=== PATIENT | male | born 1975 | race Caucasian/White ===

== ENCOUNTER 2017-06-02 12:06 | Inpatient (IN) | payer OTHER ==
[~2017-06-02] VITALS: Ht 185.4 cm; Wt 95.5 kg
[2017-06-02] MEDS ORDERED: CARAFATE1 G PO (12:39)
[2017-06-02] MEDS ORDERED: ZANTAC150 MG PO (12:39)
--- NOTE | 2017-06-02 12:40 | NUR ---
PT ARRIVED TO FLOOR AT THIS TIME. ORIENTED TO ROOM AND UNIT, BED IN LOW POSITION AND CALL LIGHT WITHIN REACH. WILL CONTINUE TO MONITOR.
[2017-06-02] MEDS ORDERED: OMEPRAZOLE20 M1 PO (12:41)
[2017-06-02] MEDS ORDERED: BACTRIM 400-801 TAB PO (12:41)
[2017-06-02] MEDS ORDERED: RIFADIN300 MG PO (12:42)
[2017-06-02 14:05] LABS: BASOPHILS 0.4 % (0-2); EOSINOPHILS 2.5 % (0-7); HEMATOCRIT 41.7 % (42.0-54.0); IMMATURE GRANULOCYTES 0.2 % (0-5); LYMPHOCYTES 13.6 % (15-50); MCH 31.4 pg (26.0-34.0); MCHC 33.6 g/dL (31.0-37.0); MCV 93.5 fL (80.0-100.0); MEAN PLATELET VOLUME 10.1 fL (7.4-10.4); MONOCYTES 4.1 % (2-11); NEUTROPHILS 79.2 % (40-80); PLATELET COUNT 350 10x3/uL (130-400); RBC 4.46 10x6/uL (4.20-6.10); RDW 13.3 % (11.5-14.5); WBC 8.5 10x3/uL (4.8-10.8)
[2017-06-02 14:30] LABS: ALBUMIN 3.1 g/dL (3.4-5.0); ANION GAP 13.8 mmol/L (8-16); BILIRUBIN - TOTAL 0.29 mg/dL (0.2-1.3); CALCIUM 8.9 mg/dL (8.5-10.1); CARBON DIOXIDE 25.6 mmol/L (21.0-32.0); CREATININE - SERUM 1.3 mg/dL (0.6-1.3); POTASSIUM - SERUM 4.4 mmol/L (3.5-5.1); PROTEIN - SERUM 6.6 g/dL (6.4-8.2)
--- NOTE | 2017-06-02 14:30 | NUR ---
20G IV STARTED TO THE RIGHT FOREARM. IV FLUIDS STARTED AT THIS TIME. ASSESSMENT DONE PER FLOWSHEET. BED IN LOW POSITION AND CALL LIGHT WITHIN REACH. WILL CONTINUE TO MONITOR.
[2017-06-02 15:29] VITALS: BP 136/82; Ht 185.4 cm; Wt 95.5 kg
[2017-06-02 20:00] VITALS: BP 141/90
--- NOTE | 2017-06-02 20:03 | NUR ---
PATIENT RESTING IN BED AND DENIES NEEDS AT THIS TIME. BED IN LOWEST POSITION AND CALL LIGHT WITHIN REACH. ENCOURAGED THE PATIENT TO CALL IF HE HAS NEEDS.
[2017-06-03 05:36] LABS: BASOPHILS 0.2 % (0-2); EOSINOPHILS 4.3 % (0-7); HEMATOCRIT 39.4 % (42.0-54.0); HEMOGLOBIN 13.4 g/dL (13.5-17.5); IMMATURE GRANULOCYTES 0.2 % (0-5); LYMPHOCYTES 22.3 % (15-50); MCH 31.2 pg (26.0-34.0); MCV 91.8 fL (80.0-100.0); MONOCYTES 9.4 % (2-11); NEUTROPHILS 63.6 % (40-80); PLATELET COUNT 333 10x3/uL (130-400); RBC 4.29 10x6/uL (4.20-6.10); RDW 13.1 % (11.5-14.5); WBC 9.7 10x3/uL (4.8-10.8)
[2017-06-03 05:58] LABS: CALC OSMOLALITY 280 mosm/kg (275-300); CALCIUM 8.7 mg/dL (8.5-10.1); CARBON DIOXIDE 25.9 mmol/L (21.0-32.0); CHLORIDE - SERUM 107 mmol/L (98-107); GLUCOSE 98 mg/dL (74-106); POTASSIUM - SERUM 3.9 mmol/L (3.5-5.1); SODIUM 141 mmol/L (136-145); UREA NITROGEN 12 mg/dL (7-18); eGFR NON AFRICAN AMERICAN 87 mL/min (90-120)
--- NOTE | 2017-06-03 07:30 | NUR ---
RECIEVED PT DURING WALKING ROUNDS. NO COMPLAINTS OF PAIN OR DISCOMFORT AT THIS TIME. ASSESSMENT DONE PER FLOWSHEET. BED IN LOW POSITION AND CALL LIGHT WITHIN REACH. WILL CONTINUE TO MONITOR.
[2017-06-03 09:30] VITALS: BP 122/71
--- NOTE | 2017-06-03 10:20 | NUR ---
PT ASKS AT THIS TIME ABOUT WHAT DOCTOR IS GOING TO DO ABOUT SORE ON HIS GENITAL AREA. INFORMED PT THAT I WOULD SPEAK WITH THE DRAnnia AWAITING TO HEAR FROM DR. CURIEL.
[2017-06-03 16:23] VITALS: BP 134/83
[2017-06-03 20:00] VITALS: BP 158/82
[2017-06-04] VITALS: BP 135/83
--- NOTE | 2017-06-04 02:51 | NUR ---
PATIENT RESTING WITH EYES CLOSED AND NO VISIBLE SIGNS OF DISTRESS. BED IN LOWEST POSITION AND CALL LIGHT WITHIN REACH.
[2017-06-04 04:00] VITALS: BP 126/73
[2017-06-04 06:07] LABS: BASOPHILS 0.3 % (0-2); EOSINOPHILS 4.5 % (0-7); HEMATOCRIT 41.4 % (42.0-54.0); HEMOGLOBIN 14.2 g/dL (13.5-17.5); IMMATURE GRANULOCYTES 0.4 % (0-5); LYMPHOCYTES 25.8 % (15-50); MCH 31.2 pg (26.0-34.0); MCHC 34.3 g/dL (31.0-37.0); MEAN PLATELET VOLUME 9.8 fL (7.4-10.4); MONOCYTES 6.4 % (2-11); NEUTROPHILS 62.6 % (40-80); PLATELET COUNT 353 10x3/uL (130-400); RBC 4.55 10x6/uL (4.20-6.10); RDW 13.1 % (11.5-14.5); WBC 9.9 10x3/uL (4.8-10.8)
[2017-06-04 06:09] LABS: CALC OSMOLALITY 272 mosm/kg (275-300); CALCIUM 8.7 mg/dL (8.5-10.1); CARBON DIOXIDE 20.5 mmol/L (21.0-32.0); CHLORIDE - SERUM 106 mmol/L (98-107); CREATININE - SERUM 0.9 mg/dL (0.6-1.3); GLUCOSE 103 mg/dL (74-106); POTASSIUM - SERUM 4.3 mmol/L (3.5-5.1); SODIUM 137 mmol/L (136-145); UREA NITROGEN 11 mg/dL (7-18); eGFR NON AFRICAN AMERICAN > 90 mL/min (90-120)
--- NOTE | 2017-06-04 07:20 | NUR ---
PATEINT UP AMBULATING IN HALLWAY WITHOUT ASSIST. NO SIGNS OF DISTRESS NOTED.
[2017-06-04 08:51] VITALS: BP 117/66
--- NOTE | 2017-06-04 09:15 | NUR ---
PATIENT IN RIGHT LATERAL POSITION RESTING QUIETLY. NO SIGNS OF DISTRESS NOTED. SCHEDULED MEDICATION ADMINISTERED. DENIES NEEDS. BED IN LOW POSITION. CALL LIGHT IN REACH.
--- NOTE | 2017-06-04 11:50 | NUR ---
PATIENT UP AMBULATING IN HALLWAY WITHOUT ASSIST. ANTICIPATING D/C HOME TODAY.
[2017-06-04] MEDS ORDERED: DIFLUCAN100 MG PO (12:09)
[2017-06-04] MEDS ORDERED: RIFADIN300 MG PO (12:10)
[2017-06-04] MEDS ORDERED: NYSTATIN OINTME15 GM TOPICAL (12:10)
[2017-06-04] MEDS ORDERED: BACTRIM 400-801 TAB PO (12:10)
--- NOTE | 2017-06-04 13:25 | NUR ---
IV TO RIGHT FOREARM D/C WITH CATH TIP INTACT. SITE COVERED WITH GAUZE AND BANDAID. D/C TEACHING PROVIDED. STATES UNDERSTANDING. DENIES QUESTIONS.
--- NOTE | 2017-06-04 13:35 | NUR ---
PATIENT D/C HOME. REFUSES WHEELCHAIR ASSIST. AMBULATED OFF UNIT
== END 2017-06-04 13:39 | disposition home or self-care (01) | DRG 603 ==
LOC: D.MS 12:06
PROVIDERS: ADMIT Emergency Medicine
DX: L03.116 Cellulitis of left lower limb (principal); F17.203 Nicotine dependence unspecified, with withdrawal; K21.9 Gastro-esophageal reflux disease without esophagitis; R21 Rash and other nonspecific skin eruption